=== PATIENT | female | born 1990 ===

== ENCOUNTER 2018-03-05 22:13 | Emergency (ER) | payer SELFPAY ==
[2018-03-05 22:13] VITALS: BMI 35.7
[2018-03-05 22:17] VITALS: BP 127/76; PULSE 113; RESP 16; TEMP 98.5; O2SAT 98
--- NOTE | 2018-03-05 22:26 | ED PDOC ---
HPI: General Adult Time Seen by Provider: 03/05/18 22:19 Chief Complaint (Nursing): Alcohol Ingestion Chief Complaint (Provider): Abrasions on left wrist History Per: Patient History/Exam Limitations: no limitations Onset/Duration Of Symptoms: Hrs Have you had recent travel within the past 21 days to any of the following countries: [place], [place], [place] or [place]?: No Additional Complaint(s): 28 yo female with no medical problems presents for evaluation of abrasions on the left wrist. Pt was under arrest and got abrasions from hand cuffs. Pt denies other complaints. Pt states she was drinking beer earlier today before she as arrested. Pt states police told her she needed to come to the hospital when she was released from them. Pt brought by EMS. Past Medical History Reviewed: Historical Data, Nursing Documentation, Vital Signs Vital Signs: Last Vital Signs Temp 98.5 F 03/05/18 22:15 Pulse 113 H 03/05/18 22:15 Resp 16 03/05/18 22:15 BP 127/76 03/05/18 22:15 Pulse Ox 98 03/05/18 22:15 - Medical History PMH: Anxiety Denies: Colonic Polyps, Diabetes, Fractures, Hepatitis, HIV, HTN, Seizures, Sexually Transmitted Disease - Surgical History Surgical History: Denies: Endoscopy - Family History Family History: States: No Known Family Hx - Living Arrangements Living Arrangements: With Family - Immunization History Hx Tetanus Toxoid Vaccination: No Hx Influenza Vaccination: No Hx Pneumococcal Vaccination: No - Home Medications Home Medications: Ambulatory Orders Medication Instructions Recorded Ibuprofen [Motrin] 600 mg PO Q8 PRN #12 tab 07/02/16 Nitrofurantoin Macrocrystals 100 mg PO BID #14 cap 07/02/16 [Macrobid] Ondansetron [Zofran Odt] 4 mg PO Q6 PRN #14 odt 07/02/16 - Allergies Allergies/Adverse Reactions: Allergies Allergy/AdvReac Type Severity Reaction Status Date / Time Penicillins Allergy Intermediate RASH Verified 03/05/18 22:14 blueberries Allergy Intermediate SHORTNESS Uncoded 12/16/15 11:22 OF BREATH Review of Systems ROS Statement: Except As Marked, All Systems Reviewed And Found Negative Constitutional: Negative for: Fever, Chills, Sweats Cardiovascular: Negative for: Chest Pain, Palpitations Respiratory: Negative for: Cough Gastrointestinal: Negative for: Nausea, Vomiting, Abdominal Pain Skin: Positive for: Other Physical Exam - Reviewed Nursing Documentation Reviewed: Yes Vital Signs Reviewed: Yes - Physical Exam Appears: Positive for: Well, Non-toxic, No Acute Distress Head Exam: Positive for: ATRAUMATIC, NORMAL INSPECTION, NORMOCEPHALIC Skin: Positive for: Warm. Negative for: Normal Color (Abrasions on left wrist) Eye Exam: Positive for: Normal appearance ENT: Positive for: Normal ENT Inspection Neck: Positive for: Normal, Painless ROM Cardiovascular/Chest: Positive for: Regular Rate, Rhythm Respiratory: Positive for: Normal Breath Sounds. Negative for: Accessory Muscle Use, Respiratory Distress Back: Positive for: Normal Inspection Extremity: Positive for: Normal ROM Neurologic/Psych: Positive for: Alert, Oriented - ECG O2 Sat by Pulse Oximetry: 98 Disposition - Clinical Impression Clinical Impression: Abrasion - Patient ED Disposition Is Patient to be Admitted: No Counseled Patient/Family Regarding: Diagnosis, Need For Followup - Disposition Referrals: [facility] [Outside] Disposition: Routine/Home Disposition Time: 22:23 Condition: GOOD Instructions: Skin Abrasions
== END 2018-03-05 22:35 | disposition home or self-care (01) ==
LOC: H.ER 22:13
DX: S60.812A Abrasion of left wrist, initial encounter (principal); Y35.893A Legal intervention involving other specified means, suspect injured, initial encounter; F41.9 Anxiety disorder, unspecified; Z88.0 Allergy status to penicillin